=== PATIENT | male | born 1940 | race Caucasian/White ===

== ENCOUNTER 2018-04-26 06:19 | Inpatient (IN) ==
--- NOTE | 2018-03-25 16:01 | PAT Medication Instructions ---
Medication Instructions Date of Service March 25, 2018 Home Medications cyanocobalamin (vitamin B-12) 50 mcg PO QPM multivitamin 1 cap PO QPM simvastatin 40 mg PO PM aspirin [Aspir-Low] 81 mg PO QPM dicyclomine 10 mg PO HS Take evening before surgery cyanocobalamin (vitamin B-12) 50 mcg PO QPM multivitamin 1 cap PO QPM simvastatin 40 mg PO PM aspirin [Aspir-Low] 81 mg PO QPM dicyclomine 10 mg PO HS Other Notes If you have any questions please call us at [phone] or [phone] or [phone] or [phone]
--- NOTE | 2018-03-28 13:59 | Anesthesiology Consultation ---
Date of Service March 28, 2018 Assessment & Plan (1) Encounter for pre-operative examination: Chart Review Chart Review: Acceptable Risk for Surgery and Patient seen in Pre Admission Testing Teaching & Discussion Instructed NPO after midnight before surgery, except medications with 15 cc of water. Medication instructions provided according to the PAT guidelines. History Surgery Operation Date: 04/26/18 10:40 Proposed Procedures p Right Total Knee Arthroplasty - Fabrizio Matthew MD Height/Weight Height: 5 ft 10 in Weight: 84 kg Allergies Allergy/AdvReac Type Severity Reaction Status Date / Time No Known Drug Allergies Allergy Unknown . Verified 03/23/18 12:27 Medications Home Medications Medication Instructions Recorded Confirmed Last Taken cyanocobalamin (vitamin B-12) 50 mcg PO QPM 12/09/17 03/23/18 01/02/18 21:00 multivitamin 1 cap PO QPM 12/09/17 03/23/18 01/02/18 22:00 simvastatin 40 mg PO PM 12/09/17 03/23/18 01/03/18 23:00 aspirin [Aspir-Low] 81 mg PO QPM 03/23/18 03/23/18 Unknown dicyclomine 10 mg PO HS 03/23/18 03/23/18 Unknown Past Medical History Medical History Bradycardia ASYMPTOMATIC; SINUS FRED ON EKG Diverticular disease HX History of irritable bowel syndrome Hyperlipidemia Past Surgical History Surgical History Varicose veins of left lower extremity (Acute) STRIPPING 15 YRS AGO History of lumbar surgery Pt denies fusion/hardware, unsure of what surgery was History of appendectomy History of hammertoe correction RIGHT FOOT History of total knee replacement LEFT Past Anesthesia History No Hx of Anesthesia Complications and No Family Hx of Anesthesia Complications Had L TKA 12/2017 [facility], SAB + PNB without issues. History of PONV No Motion Sickness Screening History of Motion Sickness: No Social History Smoking Status: Former smoker Smoking End Date: QUIT 40 YRS AGO Hx Alcohol Use: Yes Alcohol type: beer alcohol intake frequency: 3 or more drinks per day (2-4 drinks per day) Hx Substance Use: No substance use type: does not use Exercise / Class Metabolic Activity II 4-5 Yardwork/Stairs/Walk up hill Review of Systems Pt denies any recent chest pain, shortness of breath, palpitations, cough, fever or URI. Physical Exam Vital Signs BP: 150/81 (pt advised to f/u with PCP re: HTN) P: 71bpm SPO2: 98% RA T: 97.7 F R: 16 ENMT Mouth: + dental restorations (one crown, one implant); no chipped teeth and no loose teeth Thyromental Distance: > or= 3.5 Finger Breadths (3.5) Mallampati Class: II Neck normal visual inspection; neck extension not limited Respiratory normal respiratory effort Auscultation: lungs clear to auscultation bilaterally Cardiovascular Rate/Rhythm: regular rate and regular rhythm Heart Sounds: no murmur Vessels: no carotid bruit Extremities: no edema Testing Electrocardiogram Date: 12/14/17 Findings: + SB @ (52) LAFB. LVH with QRS widening. Chest X-Ray Date: 12/14/17 Findings: + NAD Laboratory Results 03/28/18 14:10 03/28/18 14:10 Blood Type O Positive 03/28/18 14:10 Antibody Screen NEGATIVE 03/28/18 14:10 PT 10.2 Seconds (9.0-12.0) 03/28/18 14:10 INR 1.0 (0.9-1.1) 03/28/18 14:10 APTT 26.1 Seconds (21.0-31.0) 03/28/18 14:10
[2018-03-28 14:41] LABS: Basophils # (auto) 0.07 K/uL (0-0.2); Eosinophils # (auto) 0.21 K/uL (0-0.5); Hematocrit (blood only) 36.7 % (42-52); Hemoglobin 12.4 g/dL (14.0-18.0); Immature Granulocytes # (auto) 0.02 K/uL (0.00-0.02); Immature Granulocytes % (auto) 0.3 %; Lymphocytes # (auto) 1.85 K/uL (1.2-3.4); Lymphocytes % (auto) 26.4 %; Mean Corpuscular Hgb Conc 33.8 g/dL (32-36); Mean Corpuscular Volume 91.3 fL (80-100); Mean Platelet Volume 9.5 fL (7.4-10.4); Monocytes # (auto) 0.61 K/uL (0.11-0.59); Monocytes % (auto) 8.7 %; Neutrophils # (auto) 4.24 K/uL (1.4-6.5); Neutrophils % (auto) 60.6 %; Platelet Count 328 K/uL (130-400); RDW Coefficient of Variation 14.1 % (11.5-14.5); RDW Standard Deviation 47.7 fL (36.4-46.3); Red Blood Count 4.02 M/uL (4.7-6.1)
[2018-03-28 14:50] LABS: Partial Thromboplastin Time 26.1 Seconds (21.0-31.0); Prothrombin Time 10.2 Seconds (9.0-12.0)
[2018-03-28 15:00] LABS: BUN Creatinine Ratio 17.9 (10-20); C Reactive Protein 0.41 mg/dl (0-0.29); Calcium 9.4 mg/dl (8.5-10.1); Creatinine Clr Calc Pharmacy 67.6 ml/min; Est GFR (African American) 88.6; Est GFR (Non-African American) 76.5
--- NOTE | 2018-04-21 22:22 | History and Physical Report ---
DATE OF ADMISSION: 04/26/2018 CHIEF COMPLAINT: Persistent right knee pain and discomfort. HISTORY OF PRESENT ILLNESS: The patient is a 78-year-old gentleman who is now just a little bit over 3 months out from a left knee replacement. He has had a long history of bilateral knee pain and discomfort, describes it has gotten worse over time. He failed conservative treatment. He has had left knee replaced a little over 3 months ago and has done well from this. He now continues to be limited by knee pain in the right knee. It is mostly in the medial side, but some global pain. The more he walks, the more it hurts. Since he has been able to be more active with his left knee, his right knee is bothering more. He would like to proceed with surgical treatment. PAST MEDICAL HISTORY: 1. Elevated cholesterol. 2. Back pain. PAST SURGICAL HISTORY: Left knee replacement done 01/04/2018. ALLERGIES: None. CURRENT MEDICATIONS: Simvastatin. SOCIAL HISTORY: A 78-year-old male. He is from [place]. He is retired Three drinks per day, beer. Does not smoke. FAMILY HISTORY: Noncontributory. REVIEW OF SYSTEMS: Negative for diabetes, neurologic problems, vascular problems or bleeding disorders. No chest pain or shortness of breath. No evidence of DVT or PE. PHYSICAL EXAMINATION: GENERAL: Healthy, pleasant, middle-aged male. He looks to be in excellent health. HEENT: Benign. NECK: Supple, no lymphadenopathy. LUNGS: Clear to auscultation. HEART: Regular rate and rhythm. ABDOMEN: Soft, nontender, nondistended. EXTREMITIES: Grossly neurovascularly intact except as follows: Examination of the right knee reveals patient walks with varus alignment to his knee with a varus thrust with weightbearing. He has got bony hypertrophy medially. Small knee effusion. Range of motion of 10 degrees show full extension to 115 degrees of flexion. There is no instability. Examination of left knee reveals a well-healed incision. Fairly mild swelling. Range of motion 0-120. Good straight leg raise. X-RAYS: X-rays of the right knee from previously reviewed. Shows advanced right knee medial compartment DJD. He has complete loss of his medial joint space. He has got subchondral sclerosis. He has got a fixed varus deformity. ASSESSMENT: A 78-year-old gentleman 3+ months out from a left knee replacement with advanced right knee degenerative joint disease. He has failed conservative treatment and would like to have his right knee replaced. PLAN: We will take him to the operating room and do a right total knee replacement. The risks and benefits of this procedure were explained to the patient include but not limited to DVT, PE, , infection, neurological injury, vascular injury, bleeding problem, pain, limited range of motion, stiffness, failure to relieve symptoms, incomplete relief of symptoms, need for further surgery in future, fracture, leg length inequality, etc. The patient understands and desires to proceed. Informed consent was obtained. As far as discharge plans, he is planning to be discharged home and do outpatient therapy at [facility] in [place]. His can assist in his care.
[~2018-04-26 06:19] MED LIST: ACETAMINOPHEN 500 MG TAB PO SCH; BUPIVACAINE LIPOSOME/PF 266 MG, BUPIVACAINE/EPINEPHRINE 50 ML, SODIUM CHLORIDE 0.9% 30 ... INFIL SCH; CEFAZOLIN 2000MG 2,000 MG/15 ML SYR IV SCH; FAMOTIDINE 20 MG TAB PO SCH; GABAPENTIN 300 MG PO SCH; LR 500ML BOLUS, THEN 15ML/HR IV SCH; LR 60ML/HR IV SCH; METOCLOPRAMIDE HCL 10 MG TABLET PO SCH
[2018-04-26] MEDS ORDERED: TRANEXAMIC ACID 1,000 MG **IV Intra-op IV SCH (06:30)
--- NOTE | 2018-04-26 06:52 | History & Physical Bridge Note ---
Date of Service April 26, 2018 History & Physical Bridge Note I have examined the patient, reviewed the History & Physical and in the interval since the performance of the History & Physical I have noted the following changes of clinical significance: no changes noted
[2018-04-26] MEDS ORDERED: MIDAZOLAM HCL 1 MG/ML 2ML VIAL ONE (07:20)
[2018-04-26] MEDS ORDERED: fentaNYL citrate 100 MCG/2 ML VIAL ONE (07:20)
[2018-04-26] MEDS ORDERED: BUPIVACAINE 0.5 % 5 MG/1 ML PF 10ML VIAL ONE (07:43)
[2018-04-26] MEDS ORDERED: ROPIVACAINE 0.5% 5 MG/ML 30 ML VIAL ONE (07:43)
[2018-04-26] MEDS ORDERED: EPINEPHrine INJ 1 MG/ML AMP ONE (07:44)
[2018-04-26] MEDS ORDERED: BACITRACIN INJ 50,000 UNIT VIAL ONE (08:49)
[2018-04-26] MEDS ORDERED: SODIUM CHLORIDE 0.9% PF 50 ML VIAL ONE (08:49)
[2018-04-26] MEDS ORDERED: BUPIVACAINE 0.25% 30 ML VIAL ONE (08:49)
[2018-04-26] MEDS ORDERED: BUPIVACAINE LIPOSOME 1.3% 266 MG/20 ML VIAL ONE (08:49)
[2018-04-26] MEDS ORDERED: ATROPINE SULFATE 0.1 MG/ML 10ML SYR IV PRN (09:10)
[2018-04-26] MEDS ORDERED: ePHEDrine sulfate 50 MG/ML AMP IV PRN (09:10)
[2018-04-26] MEDS ORDERED: PROPOFOL IV EMULSION 10 MG/ML 20 ML VIAL IV ONE ×2 (09:17→10:09)
--- NOTE | 2018-04-26 10:47 | Post Operative Brief Note ---
Immediate Post Op Note v1 Date of Surgery April 26, 2018 Pre & Post Diagnosis Operation Date: 04/26/18 08:50 Pre-Op Diagnosis: Right Knee Advanced Degenerative Joint Disease Post-Op Diagnosis: Right Knee Advanced Degenerative Joint Disease Procedure Operation Date: 04/26/18 08:50 Actual Procedures p Right Total Knee Arthroplasty(Right) - Fabrizio Matthew MD Surgeon Fabrizio Matthew MD Rug Measurer Addy, PAC Estimated Blood Loss 50 Findings Consistent with Post-Op Diagnosis Fluids 1500 cc Specimens Right Knee Drains Bush Catheter (A 16 Maori bush catheter was inserted by JUSTUS Patterson, without difficulty, clear yellow urine obtained, output to be monitored by Anesthesia.) Anesthesia Type Spinal MAC Complications none Disposition Accompanied Patient To Recovery: No Disposition: Recovery Room
--- NOTE | 2018-04-26 11:08 | XRay Report ---
XR knee RT 2V routine CLINICAL HISTORY: Surgical Post Op postoperative evaluation COMPARISON: None. DISCUSSION: Anatomic alignment is total right knee arthroplasty. Good contact between metallic prosth etic and underlying bone. Expected postoperative soft tissue change. IMPRESSION: Anatomic alignment post total right knee arthroplasty. The above report was generated using voice recognition software. It may contain grammatical, syntax or spelling errors. Electronically signed by: Douglas Carson M.D. 04/26/2018 11:06 AM
--- NOTE | 2018-04-26 11:19 | Anesthesiology Progress Note ---
Date of Service April 26, 2018 Anesthesia Post Procedure Vital Signs Vital Signs: Temp Pulse Pulse Resp BP BP Pulse Ox 04/26/18 11:10 54 L 18 110/55 L 98 04/26/18 11:00 60 20 109/55 L 100 04/26/18 10:51 36.4 C L 64 20 97/53 L 97 04/26/18 06:53 36.5 C 65 20 142/89 H 96 Pain Intensity Right Knee: Pain Intensity: 4 Notes Mental Status: alert / awake / arousable Patient Amnestic to Procedure: Yes Nausea / Vomiting: adequately controlled Pain: adequately controlled Airway Patency, RR, SpO2: stable & adequate BP & HR: stable & adequate Hydration State: stable & adequate Neuraxial Anesthesia: was administered and sensory block is resolving Anesthetic Complications: no major complications apparent
[2018-04-26] MEDS ORDERED: ALUMINUM/MAGNESIUM SUSP 30 ML UDC PO PRN (11:41)
[2018-04-26] MEDS ORDERED: BISACODYL 10 MG SUPP PR PRN (11:41)
[2018-04-26] MEDS ORDERED: HYDROmorphone INJ 0.5 MG/0.5 ML SYR IV PRN (11:41)
[2018-04-26] MEDS ORDERED: NALOXONE HCL 0.4 MG/1 ML VIAL/CARP IV PRN (11:41)
[2018-04-26] MEDS ORDERED: MAGNESIUM HYDROXIDE SUSP 30 ML UDC PO PRN (11:41)
[2018-04-26] MEDS ORDERED: METOCLOPRAMIDE HCL INJ 5 MG/ML 2 ML VIAL IV PRN (11:41)
[2018-04-26] MEDS ORDERED: TRAMADOL HCL 50 MG TABLET PO PRN (11:41)
[2018-04-26] MEDS ORDERED: TAMSULOSIN HCL 0.4 MG CAP PO PRN (11:41)
[2018-04-26] MEDS: SODIUM CHLORIDE 0.9% 1000ML 1,000 ML IV SCH (14:20)
[2018-04-26] MEDS: KETOROLAC TROMETHAMINE 15 MG/ML VIAL IV SCH ×2 (14:21→21:03)
[2018-04-26] MEDS: ACETAMINOPHEN 500 MG TAB PO SCH (15:37)
[2018-04-26] MEDS ORDERED: TRANEXAMIC ACID 1,000 MG in 0.9 % SODIUM CHLORIDE 100 ML IV SCH (17:00)
[2018-04-26] MEDS: ASCORBIC ACID 500 MG TAB PO SCH (18:15)
[2018-04-26] MEDS: FERROUS GLUCONATE 324 MG TAB PO SCH (18:16)
[2018-04-26] MEDS: CEFAZOLIN 2000MG 2,000 MG/15 ML SYR IV SCH (18:30)
[2018-04-26] MEDS ORDERED: ASPIRIN 81 MG ECTAB PO SCH (21:00)
[2018-04-26] MEDS ORDERED: MULTIVITAMIN PO SCH (21:00)
[2018-04-26] MEDS: ASPIRIN 81 MG ECTAB PO SCH (21:48)
[2018-04-26] MEDS: SIMVASTATIN 40 MG TAB PO SCH (21:49)
[2018-04-26] MEDS: DICYCLOMINE HCL 10 MG CAP PO SCH (21:49)
[2018-04-26] MEDS: DOCUSATE SODIUM 100 MG CAP PO SCH (21:49)
[2018-04-26] MEDS: SENNA 8.6 MG TAB PO SCH (21:49)
[2018-04-26] MEDS: CYANOCOBALAMIN (VITAMIN B-12) 100 MCG TABLET PO SCH (21:49)
--- NOTE | 2018-04-26 22:35 | Operative Report ---
DATE OF OPERATION: 04/26/2018 SURGEON: Fabrizio Matthew MD. PROPERTY ASSESSMENT MONITOR: JUSTUS Robins. PREOPERATIVE DIAGNOSIS: Right knee degenerative joint disease. POSTOPERATIVE DIAGNOSIS: Right knee degenerative joint disease. PROCEDURE PERFORMED: Right cemented posterior stabilized total knee arthroplasty. COMPLICATIONS: None. ESTIMATED BLOOD LOSS: 50 mL. FLUID REPLACEMENT: 1500 mL crystalloid replacement. TOURNIQUET TIME: 60 minutes at 300 mmHg. ANESTHESIA: Spinal with adductor canal block. DRAINS: None. SPECIMENS: Right knee sent for pathology. OPERATIVE INDICATIONS: The patient is a 78-year-old fairly active gentleman who has had a long history of bilateral knee pain and discomfort. He underwent a left knee replacement about 3-1/2 months ago and has done well from this. He continued to be limited by right knee pain. He had failed all conservative care and elected to proceed with right total knee replacement. OPERATIVE FINDINGS: Operative findings were advanced right knee DJD. He had grade 4 [id number]-[id number] disease extensively in the medial compartment as well as patellofemoral compartment. He had a fixed varus deformity to his knees with osteophytes in all 3 compartments. Moderate sized joint effusion. OPERATIVE IMPLANTS: Operative implants consisted of: 1. Biomet Vanguard size 70 right posterior stabilized femoral component. 2. Biomet size 79 tibial tray. 3. A 12 mm posterior stabilized polyethylene insert. 4. A 31 x 8 all-poly patella. OPERATIVE PROCEDURE: The patient was taken to the operating room, identified and placed on the operating table in supine position. All contact areas were appropriately padded. IV antibiotics were provided by the anesthesia team. A spinal anesthetic and adductor canal block had been provided in the holding area. Delgadillo catheter was placed in sterile fashion. A right thigh tourniquet was then placed and the right lower extremity was then prepped and draped in usual sterile fashion. The right leg was elevated and exsanguinated with Esmarch and tourniquet placed at 300 mmHg. An anterior approach of the right knee was then performed through a longitudinal incision centered over the patella. Sharp dissection was carried through subcutaneous tissue down to the level of the extensor mechanism. A medial parapatellar arthrotomy incision was made. Some subperiosteal dissection was carried out medially. The fat pad was resected from beneath the patellar tendon. The patella was everted and knee was flexed. The lateral patellofemoral ligament was released. The ACL and PCL were released from the distal femur and the tibia subluxated anteriorly. External tibial alignment jig was then placed in the anterior face of the tibia and adjusted 16 mm medially. Proximal tibial cut was made to remove about a 1 millimeter of bone from most deficient aspect of the medial tibial plateau. Some osteophytes were taken off medial and posteromedially. Tibia sized to a size 79. Attention was then drawn to the femur. The distal femur was entered with a sharp drill bit. Intramedullary canal was suctioned. A right 6 degree valgus cutting guide was placed. Distal femoral cutting block was pinned in place. Distal femoral cut was made to take an additional 3 mm of bone off the distal femur. The femur was then sized to a size 70. We did downsize this slightly. The AP cutting block was pinned parallel to the epicondylar axis, which was 4 degrees of external rotation. The anterior cut, anterior chamfer, posterior cut, posterior chamfer cuts were made. Box cutting guide was placed and adjusted slight lateral and the box cut was made. The knee was flexed. The remnants of the medial and lateral menisci were excised. The osteophytes were taken off the posterior aspect of the femur. Trial femoral component was placed. Tibial tray was pinned in maximum external rotation and drill and stem punch were used to create defect in proximal tibia for the tibial tray. The knee was then trialed and the 12 mm insert fit most appropriately. Attention was then drawn to the patella. The patella was cleaned of all soft tissues. Patella thickness measured 23 mm in thickness, it was cut down to 14. It was sized to a size 31 patella. Lug holes were drilled for a 31 patella. Lateral osteophyte was removed. Patella button was placed. Knee was taken through range of motion and patella tracked nicely with no thumbs test. Attention was then drawn toward placement of permanent components. All trial components were removed. A bone plug was placed in distal femur to limit blood loss. A double batch of Palacos G cement was mixed. A Biomet Vanguard size 70 right posterior stabilized femoral component, size 79 tibial tray, a 12 mm posterior stabilized polyethylene insert, and a 31 x 8 all-poly patella was then cemented in place. Knee was brought out into full extension until cement hardened. A final cement check was then performed. Pericapsular tissues were injected with a total of 100 mL of a combination of 20 mL of Exparel, 30 mL of normal saline, 50 mL of 0.25% Marcaine with epinephrine. The patient received 1 gram of tranexamic acid. The tourniquet was then let down for a tourniquet time of 60 minutes. Hemostasis was assured using electrocautery. Extensor mechanism was then closed with a combination of #1 PDS suture and #1 Vicryl suture in a [id number] fashion. Extensor mechanism was checked and found to be intact. The subcutaneous tissues were then closed with #2 Dexon suture in a buried interrupted fashion. Skin was closed with skin pura. Leg was then cleaned and dried and a sterile dressing of Xeroform, 4 x 4, sterile cast padding and Yohan bandage were applied. The patient then transferred to the recovery room in stable condition. The patient tolerated the procedure well with no complication. All needle and sponge counts were correct at the end of the operation. I attest to the content of the Intraoperative Record and any orders documented therein. Any exception s are noted below.
[2018-04-27] MEDS: SODIUM CHLORIDE 0.9% 1000ML 1,000 ML IV SCH (00:01)
[2018-04-27] MEDS: CEFAZOLIN 2000MG 2,000 MG/15 ML SYR IV SCH (01:55)
[2018-04-27] MEDS: KETOROLAC TROMETHAMINE 15 MG/ML VIAL IV SCH ×4 (01:55→20:52)
[2018-04-27 06:23] LABS: Hemoglobin 11.3 g/dL (14.0-18.0); Mean Corpuscular Hgb Conc 33.2 g/dL (32-36); Mean Corpuscular Volume 90.9 fL (80-100); Mean Platelet Volume 9.2 fL (7.4-10.4); Platelet Count 233 K/uL (130-400); RDW Coefficient of Variation 14.3 % (11.5-14.5); RDW Standard Deviation 47.8 fL (36.4-46.3); Red Blood Count 3.74 M/uL (4.7-6.1); White Blood Count 9.25 K/uL (4.8-10.8)
[2018-04-27 06:53] LABS: BUN Creatinine Ratio 13.8 (10-20); Calcium 7.9 mg/dl (8.5-10.1); Creatinine Clr Calc Pharmacy 71.3 ml/min; Est GFR (African American) 94.5; Est GFR (Non-African American) 81.6
--- NOTE | 2018-04-27 07:30 | Anesthesiology Progress Note ---
Date of Service April 27, 2018 Anesthesia Post Procedure Vital Signs Vital Signs: Temp Pulse Pulse Pulse Resp BP Pulse Ox 04/27/18 02:42 37.1 C 68 17 138/79 95 04/26/18 23:30 36.9 C 68 16 158/84 H 93 04/26/18 20:09 36.4 C L 62 18 167/87 H 96 04/26/18 15:27 36.2 C L 54 L 18 162/80 H 99 04/26/18 15:06 85 16 145/83 H 95 04/26/18 13:30 54 L 16 137/76 97 04/26/18 12:30 57 L 18 139/80 98 04/26/18 12:00 50 L 18 130/78 98 04/26/18 11:30 36.5 C 56 L 16 117/66 97 04/26/18 11:10 54 L 18 110/55 L 98 04/26/18 11:00 60 20 109/55 L 100 04/26/18 10:51 36.4 C L 64 20 97/53 L 97 Pain Intensity Right Knee: Pain Intensity: 4 Notes Mental Status: alert / awake / arousable and participated in evaluation Patient Amnestic to Procedure: Yes Nausea / Vomiting: adequately controlled Pain: adequately controlled Airway Patency, RR, SpO2: stable & adequate BP & HR: stable & adequate Hydration State: stable & adequate Neuraxial Anesthesia: was administered and sensory block resolved Anesthetic Complications: no major complications apparent and Pt Satisfied with anesthetic care
[2018-04-27] MEDS: ASPIRIN 81 MG ECTAB PO SCH ×2 (07:57→20:52)
[2018-04-27] MEDS: ACETAMINOPHEN 500 MG TAB PO SCH ×3 (07:57→15:57)
[2018-04-27] MEDS: MULTIVITAMIN TAB PO SCH (07:57)
[2018-04-27] MEDS: DOCUSATE SODIUM 100 MG CAP PO SCH ×2 (07:58→20:52)
[2018-04-27] MEDS: FERROUS GLUCONATE 324 MG TAB PO SCH ×2 (07:58→17:51)
[2018-04-27] MEDS: ASCORBIC ACID 500 MG TAB PO SCH ×2 (07:58→17:51)
[2018-04-27] MEDS: ONDANSETRON INJ 2 MG/ML 2 ML VIAL IV PRN ×2 (10:36→17:00)
[2018-04-27] MEDS: CYANOCOBALAMIN (VITAMIN B-12) 100 MCG TABLET PO SCH (20:52)
[2018-04-27] MEDS: SIMVASTATIN 40 MG TAB PO SCH (20:52)
[2018-04-27] MEDS: SENNA 8.6 MG TAB PO SCH (20:52)
[2018-04-27] MEDS: DICYCLOMINE HCL 10 MG CAP PO SCH (20:52)
--- NOTE | 2018-04-27 21:28 | Progress Note ---
DATE: 04/27/2018 SUBJECTIVE: A 78-year-old gentleman postop day 1 from a right knee replacement. He is doing pretty well. He has some pain, but manageable. His biggest complaint is some nausea. He did not get a scopolamine patch this time. No chest pain or shortness of breath. Not feeling dizzy or lightheaded. OBJECTIVE: VITAL SIGNS: Temperature 36.9. Vital signs stable. GENERAL: Reveals a pleasant, middle-aged male. He is sitting up in bed, looks pretty comfortable. EXTREMITIES: Examination of the right leg reveals the dressing to be clean, dry and intact. The leg is well aligned. He can dorsiflex and plantarflex his foot appropriately. He is neurologically intact. He has got brisk refill. LABORATORY DATA: Hemoglobin 11.3. Hematocrit 34.0. Electrolytes are stable. ASSESSMENT: A 78-year-old gentleman postop day 1 from right knee replacement, doing pretty well. He is a little bit nauseated this time around, probably somewhat related to not having the scopolamine patch. He is beyond the age where we typically use those. His pain is controlled. He is neurologically intact. PLAN: 1. DVT prophylaxis including thigh-high TEDs, SCDs, and aspirin twice a day. 2. PT/OT. Weight bear as tolerated. Right total knee protocol. 3. Pain control, doing pretty well with current pain regimen. 4. Nausea. Will continue Zofran as needed. 5. Disposition: He is planning to be discharged to home. He is going to do outpatient therapy once adequately recovered.
[2018-04-28] MEDS: ACETAMINOPHEN 500 MG TAB PO SCH ×2 (00:11→07:54)
[2018-04-28] MEDS: KETOROLAC TROMETHAMINE 15 MG/ML VIAL IV SCH ×2 (02:23→07:55)
[2018-04-28] MEDS: ASCORBIC ACID 500 MG TAB PO SCH (07:54)
[2018-04-28] MEDS: ASPIRIN 81 MG ECTAB PO SCH (07:54)
[2018-04-28] MEDS: DOCUSATE SODIUM 100 MG CAP PO SCH (07:54)
[2018-04-28] MEDS: FERROUS GLUCONATE 324 MG TAB PO SCH (07:55)
[2018-04-28] MEDS: MULTIVITAMIN TAB PO SCH (07:55)
--- NOTE | 2018-04-29 08:42 | Discharge Summary ---
Date of Service May 02, 2018 Discharge Data Consultations 04/26/18 11:41 Consult Case Management - Discharge Planning Routine Procedures Performed Operation Date: 04/26/18 08:50 Actual Procedures p Right Total Knee Arthroplasty(Right) - Fabrizio Matthew MD
--- NOTE | 2018-04-29 11:28 | Discharge Summary ---
ADMITTING PHYSICIAN AND SURGEON: Dr. Fabrizio Matthew. ADMITTING DIAGNOSIS: Right knee degenerative joint disease. SURGERY PERFORMED: Right total knee arthroplasty. SECONDARY DIAGNOSES: Elevated cholesterol, back pain. CONSULTS: None obtained. HISTORY AND PHYSICAL EXAMINATION: Well documented in the patient's chart. HOSPITAL COURSE: The patient was admitted on 04/26/2018 underwent total knee arthroplasty, tolerated the procedure well. There were no complications. He was transferred to the PACU postoperatively and later to the orthopedic for further care. He was given Ancef for antibiotic prophylaxis, RASHID stockings, SCDs and aspirin for DVT prophylaxis. Hemoglobin, hematocrit and vital signs were monitored during his hospital stay and remained stable, did not require any blood transfusions. There were no complications. By postoperative day 1, he was tolerating a regular diet, pain was controlled with oral pain medicine. He was participating in physical therapy. Postop day 1, he was discharged home. He was given printed discharge instructions including new prescriptions for extra strength Tylenol, aspirin, Zofran, and tramadol. Continue his home medication with the exception of his home dose of aspirin which was changed. Continue physical therapy, weightbearing as tolerated, RASHID stockings. Follow up approximately 2 weeks postoperatively or sooner if there are any problems or concerns.
== END 2018-04-28 12:57 | disposition home or self-care (01) | DRG 470 ==
LOC: ASU 06:19 → 3E 11:38

== ENCOUNTER 2023-02-08 07:13 | Observation (INO) ==
--- NOTE | 2023-01-05 12:47 | PAT Medication Instructions ---
Medication Instructions Date of Service January 05, 2023 Home Medications multivitamin 1 cap PO HS simvastatin 40 mg tablet 40 mg PO HS famotidine 20 mg tablet 20 mg PO HS naproxen sodium 220 mg tablet (Aleve) 220 mg PO QAM PRN Pain cholecalciferol (vitamin D3) 125 mcg (5,000 unit) tablet (Vitamin D3) 125 mcg PO HS vitamin B complex 1 tab PO HS ASK your surgeon for instructions naproxen sodium 220 mg tablet (Aleve) 220 mg PO QAM PRN Pain Take evening before surgery multivitamin 1 cap PO HS simvastatin 40 mg tablet 40 mg PO HS famotidine 20 mg tablet 20 mg PO HS cholecalciferol (vitamin D3) 125 mcg (5,000 unit) tablet (Vitamin D3) 125 mcg PO HS vitamin B complex 1 tab PO HS OTHERWISE NOTHING TO EAT OR DRINK AFTER MIDNIGHT Other Notes If you have any questions please call us at [phone] or [phone] or [phone] or [phone]
--- NOTE | 2023-01-12 12:56 | Anesthesiology Consultation ---
Date of Service January 12, 2023 Assessment & Plan (1) Encounter for pre-operative examination: - Infectious disease screening: Per assessment on 01/12/23: No known infectious disease contacts or current infectious disease symptoms. - Outpatient joint assessment: Pt currently scheduled for inpatient pathway. If surgeon requests review for outpatient joint pathway, patient is not recommended candidate for outpatient joint program from anesthesia standpoint based on available information. - S/P Right CTR, right ulnar nerve transposition (03/18/22): LMA#5 at [facility] [place] - Cardiology visit (06/10/21): "Recent echocardiogram reviewed. There is mild aortic valve sclerosis and mild aortic regurgitation. Aortic root and ascending aorta were normal size. We will plan for repeat echocardiogram in 2 years. As previously noted, his chest discomfort was an isolated episode and he has not had any symptoms consistent with angina since then. Given the completely normal stress test and lack of ongoing symptoms, no additional ischemic work-up recommended." Two year followup recommended. - Heavy ETOH use: 5 drinks a day (evening)- no morning ETOH use per patient Chart Review Chart Review: Acceptable Risk for Surgery and Patient seen in Pre Admission Testing Teaching & Discussion Pre-Anesthesia Teaching/Discussion Notes: Instructed NPO after midnight before surgery,except medications with 15 cc of water. Medication instructions provided according to the PAT guidelines. History Surgery Operation Date: 02/08/23 12:20 Proposed Procedures p Right Reverse Total Shoulder Arthroplasty - Juice Swift DO Height/Weight Height: 5 ft 10 in Weight: 85.1 kg Allergies Allergy/AdvReac Type Severity Reaction Status Date / Time No Known Allergies Allergy Verified 01/05/23 09:36 Medications Home Medications Medication Instructions Recorded Confirmed Last Taken multivitamin 1 cap PO HS 12/09/17 01/05/23 03/17/22 simvastatin 40 mg tablet 40 mg PO HS 12/09/17 01/05/23 03/17/22 famotidine 20 mg tablet 20 mg PO HS 08/20/21 01/05/23 03/17/22 naproxen sodium 220 mg tablet 220 mg PO QAM PRN Pain 08/20/21 01/05/23 03/17/22 (Aleve) cholecalciferol (vitamin D3) 125 125 mcg PO HS 01/05/23 01/05/23 Unknown mcg (5,000 unit) tablet (Vitamin D3) vitamin B complex 1 tab PO HS 01/05/23 01/05/23 Unknown Past Medical History Medical History Chronic anemia GERD (gastroesophageal reflux disease) Leaky heart valve Echo 04/2021: Mild AR, 2 year followup Echo recommended by cardio History of COVID-19 06/2021 (home test)- headaches, "flu symptoms", neck pain > resolved except residual neck pain and headaches Bradycardia Asymptomatic History of irritable bowel syndrome Hyperlipidemia Exercise / Class Metabolic Activity III < 4 Walking/Shop/Light housework (one FS (no CP, + occasional SOB)) Past Family History Family History Other No family history of adverse response to anesthesia Past Surgical History Surgical History History of esophageal dilatation H/O decompression of ulnar nerve Right 03/2022 History of carpal tunnel surgery of left wrist 07/2021 History of esophagogastroduodenoscopy (EGD) Hx of colonoscopy Hx of eye surgery B/L "crossed eyes" correction History of lumbar surgery laminectomy 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 Physical Exam Vital Signs VITALS BP 136/86 P 73 TEMP 98.0 SP02 96%RA RESP 18 PHYSICAL Full cervical extension range of motion. Full TMJ range of motion. TMD 3 finger breaths Mallampati Score 1 Dentition: intact, + crown/implant Lungs: clear throughout to auscultation Cardiac: regular rate and rhythm, no murmurs noted Spine: normal Carotid arteries: negative bruit Extremities: no LE edema Lab Results Anesthesia Preop Results Results Anesthesia Widget: WBC 8.22 K/ul (4.8-10.8) 01/12/23 Hgb 12.8 g/dl (14.0-18.0) L 01/12/23 Hct 38.0 % (42.0-52.0) L 01/12/23 Plt 358 K/uL (130-400) 01/12/23 Na 137 mmol/L (136-145) 01/12/23 K 4.0 mmol/L (3.5-5.1) 01/12/23 Cl 102 mmol/L (98-107) 01/12/23 CO2 29 mmol/L (21-32) 01/12/23 BUN 16 mg/dl (6-23) 01/12/23 Creat 1.01 mg/dl (0.6-1.4) 01/12/23 Glucose Level 107 mg/dl (70-99(Fasting)) H 01/12/23 PT 10.5 Seconds (9.0-12.0) 01/12/23 PTT 28.9 Seconds (21.0-31.0) 01/12/23 INR 1.0 (0.9-1.1) 01/12/23 Blood Type O Positive 01/12/23 Antibody Screen NEGATIVE 01/12/23 Testing Electrocardiogram Date: 01/12/23 SB with first degree AVB at 56bpm. LAD. LVH with QRS widening (R in aVL, [place] product). No significant change compared to 12/14/2017 per process cheese cooker comparison. Echo done 04/2021. Chest X-Ray Date: 01/12/23 FINDINGS: Lung volumes are normal. Lungs are clear. There is no pneumothorax or pleural effusion. Cardiac size is stable. Mediastinal contours are normal. There is no evidence for pulmonary edema. IMPRESSION: No acute cardiopulmonary findings. Echocardiogram Date: 05/26/21 EF 50-55%. No obvious regional wall motion abnormality. LV diastolic function parameters are indeterminate. Mild LAD. Mild AR. Stress Test Date: 04/08/20 Type: nuclear Myocardial perfusion imaging is done at rest and after pharmaceutical stress is normal. No myocardial ischemia/infarction. EF 61%. Wall motion is normal.
[~2023-02-08 07:13] MED LIST changes: +BUPIVACAINE 0.5 % 5 MG/1 ML PF 10ML VIAL ONE; -BUPIVACAINE LIPOSOME/PF 266 MG, BUPIVACAINE/EPINEPHRINE 50 ML, SODIUM CHLORIDE 0.9% 30 ... INFIL SCH; -CEFAZOLIN 2000MG 2,000 MG/15 ML SYR IV SCH; +GABAPENTIN 300 MG CAP PO SCH; -GABAPENTIN 300 MG PO SCH; +Ketorolac (*for OR use only*) 30 MG, dexAMETHasone 4 MG, KETAMINE HCL (**OR use only) 1... INFIL SCH; +LR 15ML/HR IV SCH; -LR 500ML BOLUS, THEN 15ML/HR IV SCH; -METOCLOPRAMIDE HCL 10 MG TABLET PO SCH; +TRANEXAMIC ACID 1,000 MG **IV Intra-op IV SCH; +TRANEXAMIC ACID 1,000 MG **IV Pre-op IV SCH; +ceFAZolin 2000MG 2,000 MG/15 ML SYR IV SCH; +dexAMETHasone 4 MG TAB PO SCH
[2023-02-08] MEDS ORDERED: PROPOFOL IV EMULSION 10 MG/ML 20 ML VIAL IV ONE (07:30)
[2023-02-08] MEDS ORDERED: ONDANSETRON INJ 2 MG/ML 2 ML VIAL ONE (07:30)
[2023-02-08] MEDS ORDERED: LIDOCAINE 2% 2 ML VIAL/AMP(20MG/ML) INFIL ONE (07:30)
[2023-02-08] MEDS ORDERED: fentaNYL citrate PF 100 MCG/2 ML VIAL ONE (07:30)
[2023-02-08] MEDS ORDERED: ONDANSETRON INJ 2 MG/ML 2 ML VIAL IV PRN ×2 (08:07→12:25)
[2023-02-08] MEDS ORDERED: ePHEDrine sulfate 50 MG/ML AMP IV PRN (08:07)
[2023-02-08] MEDS ORDERED: PROMETHAZINE HCL 6.25 MG in SODIUM CHLORIDE 0.9% 50 ML IV PRN (08:07)
[2023-02-08] MEDS ORDERED: fentaNYL citrate PF 100 MCG/2 ML VIAL IV PRN (08:07)
[2023-02-08] MEDS ORDERED: ATROPINE SULFATE 0.1 MG/ML 10ML SYR IV PRN (08:07)
--- NOTE | 2023-02-08 08:07 | History & Physical Bridge Note ---
Date of Service February 08, 2023 History & Physical Bridge Note I have examined the patient, reviewed the History & Physical and in the interval since the performance of the History & Physical I have noted the following changes of clinical significance: no changes noted
[2023-02-08] MEDS ORDERED: MIDAZOLAM HCL 1 MG/ML 2ML VIAL ONE (08:17)
[2023-02-08] MEDS ORDERED: ORTHO JOINT ANESTHETIC ONE (08:33)
[2023-02-08] MEDS ORDERED: SUGAMMADEX SODIUM 200 MG/2 ML VIAL IV ONE (10:05)
[2023-02-08] MEDS ORDERED: ePHEDrine sulfate 50 MG/5 ML SYR ONE ×2 (10:05→11:26)
--- NOTE | 2023-02-08 10:06 | Operative Report ---
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 A tenodesis was opted. This was a separate and distinct portion of the procedure. For these reasons, a CPT code modifier 59 will be added to this case. Implants used: I used a [employer] Comprehensive reverse total shoulder arthroplasty system with a size 14 press fit micro humeral stem, a +6 offset humeral tray and a +3 humeral bearing, a 25 mm baseplate with a 6.5 mm central screw and superior and inferior locking screws, and a size 40 mm eccentric glenosphere. Ladarius arrived at [facility] for the above procedure. He was seen in the preoperative holding area and the operative extremity was identified and signed. He was given a preoperative antibiotic, TXA, and an interscalene nerve block. He was taken back to the operating room, laid on table in supine position, and put under general anesthesia. He was then put into the beachchair position. The shoulder was then prepped and draped in sterile fashion. A timeout was done and the patient and the operative extremity was properly identified. A deltopectoral approach was used. Dissection was taken down through the fascia and the deltoid was retracted laterally and the conjoined tendon was retracted medially. The anterior shoulder was exposed. The biceps groove was opened up and the biceps tendon was examined extensively. The biceps tendon demonstrated enlargement and inflammatory changes consistent with longstanding inflammation in the context of osteoarthritis and cuff arthropathy. The long head of the biceps tendon was then tenodesed to the upper border of the pectoralis major. This was a separate and distinct portion of the procedure. The subscapularis was then directly released off the lesser tuberosity with a peel technique. The inferior capsule was released and the humeral head was dislocated. A canal finding reamer was sent down the center of the humeral canal. Sequential reaming up to a size 14 reamer was done. Off that reamer, a proximal humeral resection guide was placed. The proximal humerus was resected at 135 of inclination and 25 of retroversion. Osteophytes were then removed and the glenoid was exposed. Time was spent doing a complete capsular and labral release. The glenoid guide was then placed in the inferior aspect of the glenoid. A 3.2 mm Steinmann pin was then placed into the glenoid vault at 10 of inclination. The glenoid baseplate was then reamed. The final size 25 mm baseplate was then impacted in the place. A 6.5 mm central screw was then placed followed by superior and inferior locking screws. A 40 mm eccentric glenosphere was then impacted into place. Surrounding soft tissues were then injected with 100 cc an orthopedic pain control cocktail. The proximal humerus was then exposed. Sequential broaching of the humerus up to a size 14 broach was done. Off that broach a +6 offset and +3 thickness humeral tray was trialed. The shoulder was then reduced, brought through a full range of motion, and felt to be stable. The shoulder was then dislocated and the broach was removed. The final size 14 micro press-fit humeral stem was then impacted into place. A +3 humeral bearing was then snapped onto a +6 offset humeral tray. The humeral tray was then imp acted onto the humeral stem. The shoulder was once again reduced, brought through a full range of motion, and felt to be stable. The subscapularis was then tenodesed back to the lesser tuberosity with transosseous FiberWire sutures and side to side sutures with the arm in 45 of external rotation. A dilute betadyne lavage was then done for 3 minutes. The joint was then irrigated with normal saline solution. Hemostasis was obtained. The interval was closed with 2-0 Vicryl suture. The skin was then closed with 2-0 Vicryl and pura. A Silverlon dressing was placed and the arm was rested in a regular arm sling. He was then extubated and transferred to a hospital bed. He taken to the postanesthesia care unit in stable condition. He tolerated the procedure well. Juice Gardner PA-C, was present for the entire procedure. He was critical for patient positioning, prepping, draping, retraction exposure, wound closure and application of sterile dressing. I attest to the content of the Intraoperative Record and any orders documented therein. Any exceptions are noted below.
--- NOTE | 2023-02-08 10:50 | XRay Report ---
RIGHT SHOULDER 2 VIEWS CLINICAL HISTORY: Postoperative examination. FINDINGS: 2 portable views of the right shoulder are compared to study dated 10/20/2022. The skeletal structures are osteopenic. A right shoulder arthroplasty is in near anatomic alignment. No fracture i s seen. Productive degenerative change is noted at the acromioclavicular joint. Skin clips, subcutane ous gas, and soft tissue swelling overlying the right shoulder are expected postsurgical findings. Im aged right lung parenchyma appears clear noting basilar atelectasis. IMPRESSION: Expected postoperative findings status post right shoulder arthroplasty. No fracture is s een. Electronically signed by: Jamari Bone M.D. 02/08/2023 10:49 AM
--- NOTE | 2023-02-08 12:03 | Anesthesiology Progress Note ---
Date of Service February 08, 2023 Anesthesia Post Procedure Vital Signs Vital Signs: Temp Pulse Pulse Resp BP BP Pulse Ox 02/08/23 11:45 69 13 117/74 95 02/08/23 11:30 68 14 130/83 92 02/08/23 11:15 64 14 146/85 H 93 02/08/23 11:00 69 15 131/77 93 02/08/23 10:50 36.5 C 67 12 135/84 95 02/08/23 10:40 63 12 153/84 H 98 02/08/23 10:30 64 12 139/89 99 02/08/23 10:20 36 C L 69 12 167/89 H 98 02/08/23 07:46 36.7 C 61 16 161/92 H 98 O2 Del Method O2 Flow Rate 02/08/23 11:45 Room Air 02/08/23 11:30 Room Air 02/08/23 11:15 Room Air 02/08/23 11:00 Room Air 02/08/23 10:50 Room Air 02/08/23 10:40 Room Air 02/08/23 10:30 Oxymask 4 02/08/23 10:20 Oxymask 6 02/08/23 07:46 Room Air Transfer of Care Handoff Completed per policy Notes Mental Status: alert / awake / arousable Patient Amnestic to Procedure: Yes Nausea / Vomiting: adequately controlled Pain: adequately controlled Airway Patency, RR, SpO2: stable & adequate BP & HR: stable & adequate Hydration State: stable & adequate Anesthetic Complications: no major complications apparent
[2023-02-08] MEDS ORDERED: METOCLOPRAMIDE HCL INJ 5 MG/ML 2 ML VIAL IV PRN (12:25)
[2023-02-08] MEDS ORDERED: oxyCODONE HCL IR 5 MG TAB (IMMEDIATE RELEASE) PO PRN (12:25)
[2023-02-08] MEDS ORDERED: HYDROmorphone INJ 0.5 MG/0.5 ML SYR IV PRN (12:25)
[2023-02-08] MEDS ORDERED: bisacodyL 10 MG SUPP PR PRN (12:25)
[2023-02-08] MEDS ORDERED: MAGNESIUM HYDROXIDE SUSP 30 ML UDC PO PRN (12:25)
[2023-02-08] MEDS ORDERED: NALOXONE HCL 0.4 MG/1 ML VIAL/CARP IV PRN (12:25)
[2023-02-08] MEDS: SODIUM CHLORIDE 0.9% 1,000 ML IV SCH ×2 (12:51→22:42)
[2023-02-08] MEDS: ACETAMINOPHEN 500 MG TAB PO SCH ×2 (13:28→21:39)
[2023-02-08] MEDS: ceFAZolin 2000MG 2,000 MG/15 ML SYR IV SCH ×2 (16:19→23:53)
[2023-02-08] MEDS ORDERED: FAMOTIDINE 20 MG TAB PO SCH (21:00)
[2023-02-08] MEDS ORDERED: SENNA 8.6 MG TAB PO SCH (21:00)
[2023-02-08] MEDS ORDERED: SIMVASTATIN 40 MG TAB PO SCH (21:00)
[2023-02-08] MEDS: DOCUSATE SODIUM 100 MG CAP PO SCH (21:39)
[2023-02-09] MEDS: ACETAMINOPHEN 500 MG TAB PO SCH (05:44)
[2023-02-09] MEDS ORDERED: dexAMETHasone 4 MG TAB PO SCH (08:00)
[2023-02-09] MEDS: DOCUSATE SODIUM 100 MG CAP PO SCH (08:01)
[2023-02-09] MEDS ORDERED: MULTIVITAMIN TAB PO SCH (09:00)
--- NOTE | 2023-02-09 09:34 | Orthopedic Progress Note ---
Date of Service February 09, 2023 Assessment & Plan (1) Status post reverse total replacement of right shoulder: Overall he is doing quite well today with good pain control to the right shoulder. He will work with physical therapy today to work on range of motion. He may be discharged home later today. He will follow-up with orthopedics in 2 weeks for postoperative care. Subjective . Angela was seen and evaluated at bedside today resting in no apparent distress. He notes that his pain is well-controlled to the right shoulder. He has been up and ambulating to the bathroom. He denies any concerns today. Review of Systems All systems reviewed & are unremarkable except as noted in HPI & below. Physical Exam . On physical examination of the right shoulder, dressings are in place, clean, and dry. Arm is immobilized in a sling. Active range of motion intact at the elbow, wrist, and all 5 digits. Motor function intact. +2 radial pulse. Less than 2-second capillary refill. Normal sensation. Neurovascular intact. Results & Data Results & Data Laboratory Results . Diagnostic Findings . Postoperative x-rays of the right shoulder show prosthesis to be in anatomical alignment with no signs of fracture complication or loosening. PG Care Time/CCT Total # of Minutes Spent Total Time Spent with Patient: Total time spent is greater than 50% in coordination of care (as documented) at patient's floor/unit and/or counseling patient: Coding Level of Care Code 41889 Post Operative Follow-Up Diagnoses Status post reverse total replacement of right shoulder Z96.611
--- NOTE | 2023-02-09 09:36 | Discharge Summary ---
Date of Service February 09, 2023 Principal Diagnosis Same as "Discharge Diagnosis" noted below under Discharge Instructions. Discharge Exam . On physical examination of the right shoulder, dressings are in place, clean, and dry. Arm is immobilized in a sling. Active range of motion intact at the elbow, wrist, and all 5 digits. Motor function intact. +2 radial pulse. Less than 2-second capillary refill. Normal sensation. Neurovascular intact. Discharge Data Procedures Performed Operation Date: 02/08/23 09:00 Actual Procedures p Right Reverse Total Shoulder Arthroplasty, Uncemented(Right) - Juice Swift DO Ordered Studies 02/08/23 05:00 US - OR guided needle placemen Routine Hospital Course (1) Status post reverse total replacement of right shoulder: On February 08, 2023 Angela arrived at [facility] orth[facility] and underwent a right reverse total shoulder arthroplasty with no complications. He had a general anesthetic. Postoperatively, he was transferred to the PACU for immediate postoperative care and then transferred to the general orthopedic floor in stable condition. His hospital course was uneventful. On postoperative day #1, his vital signs were stable and his pain was well-control led. He worked well with physical therapy working on range of motion exercises. He was discharged home in stable condition. He will follow-up with orthopedics in 2 weeks for postoperative care. PG Care Time/CCT Total # of Minutes Spent Total Time Spent with Patient: Total time spent is greater than 50% in coordination of care (as documented) at patient's floor/unit and/or counseling patient: Discharge Plan Discharge Items Patient Disposition: Home - Home Health Services Reason For Visit: Degenerative Joint Disease Right Shoulder Discharge Diagnosis: Right reverse shoulder replacement Activity: Per Instructions section Non-emergency contact: Surgeon Call non-emergency contact if: your wound has increased redness and your wound has increased drainage Follow-up/Referrals: Marci Shaw DO [Primary Care Provider] - Diet: Regular Addtl Attending Provider Instructions: Activity and Therapy Recommendations: * If you are using [facility] then therapy will be provided at your home until they feel you have accomplished all of your goals. * If you are using [facility] then Physical Therapy will be provided until they feel you are ready to start Outpatient Physical Therapy. * If you are not using home therapy then Outpatient Physical Therapy should start about 3-5 days from your day of surgery. Therapy will last about 8-12 weeks * Wear your sling for 3 weeks, unless otherwise instructed. You may remove your sling to shower and to dress, but otherwise, you should be in your sling at all times, including while sleeping * The shoulder replacement is very stable and you can use your hand while in the sling * You were shown a series of exercises in the hospital. Do these exercises daily including the exercises you were shown in physical therapy. Medications: * Narcotic You will likely be sent home from the hospital with a prescription for the narcotic pain medication that worked best throughout your stay. * Cefadroxil -take the antibiotic twice a day for 10 days to help prevent infection. * Other medications may be prescribed for specific circumstances. If you have any questions, please call the office at . * Resume previous home medications unless otherwise instructed Dressing Care: Leave the Silverlon dressing in place for 7 days. After 7 days you may remove the dressing. If the incision is not draining then you may leave the pura open to air. If there is a little bit of drainage or if the pura are getting stuck on your clothing then cover the incision with a dry dressing. The pura will be removed at your 2 week follow-up appointment. Showering: You may shower with the Silverlon dressing in place. Do not let the shower spray hit the dressing directly. Pat the Silverlon dressing dry. If the dressing becomes wet underneath, then simply remove the dressing. Keep the incision dry until you are 7 days out from the day of surgery. After 7 days you may remove the Silverlon dressing and shower with the pura exposed. Let soapy water run over the pura and pat them dry. Do not scrub or soak the incision. Things To Watch For: * Drainage from the incision site that occurs more than one week after your surgery. * Increased redness at the incision site. * Fever above 102 degrees Fahrenheit. * Unusual chest pain or shortness of breath. * Call [facility] at with any of the above problems Follow-Up Visit: Follow-up with Dr. Swift's PA (Juice Gardner) 2-3 weeks after your day of surgery. He will remove your pura and answer any questions. If you have any additional questions or concerns, Dr Swift is usually in the office at the same time and will be available An appointment was probably scheduled when you signed-up for surgery in the office. If you have any questions call More detailed instructions as well as Frequently Asked Questions were provided in a folder by our office when you signed-up for surgery. Please review these instructions when you get home. If you have any further questions or concerns, please feel free to call the office at [phone] Pending Studies at Discharge: No Stand-Alone Forms: [facility], Smoking Cessation Medications and DC Order Prescriptions: New oxycodone 5 mg Tablet 5 - 10 mg PO Q6 PRN (Reason: pain) Qty: 30 0RF cefadroxil 500 mg capsule 500 mg PO BID 10 Days Qty: 20 0RF Continued simvastatin 40 mg Tablet 40 mg PO HS multivitamin Capsule 1 cap PO HS famotidine 20 mg Tablet 20 mg PO HS vitamin B complex Tablet Extended Release 1 tab PO HS cholecalciferol (vitamin D3) [Vitamin D3] 125 mcg (5,000 unit) Tablet 125 mcg PO HS Discontinued naproxen sodium [Aleve] 220 mg Tablet 220 mg PO QAM PRN (Reason: Pain) Admission Data Admit Date/Time: 02/08/23 10:22 Attending Provider: Juice Swift Admit Provider: Juice Swift Primary Care Provider: Marci Shaw
== END 2023-02-09 12:21 | disposition home or self-care (01) ==
LOC: ASU 07:13 → 3E 07:13